=== PATIENT | female | born 1955 | race Caucasian/White ===

== ENCOUNTER 2024-10-18 11:35 | Outpatient (CLI) | payer MEDICARE, BC, SELFPAY | END 2024-10-18 11:36 | disposition home or self-care (01) | LOC: NFLDREF 10-23 18:47 | PROVIDERS: Visit Provider Physician Assistant Medical | DX: R39.9 Unspecified symptoms and signs involving the genitourinary system (principal); N39.0 Urinary tract infection, site not specified | CPT/HCPCS: 87086 ==

== ENCOUNTER 2024-11-01 08:55 | Outpatient (CLI) | payer MEDICARE, BC, SELFPAY | END 2024-11-01 08:56 | disposition home or self-care (01) | LOC: NFLDREF 11-02 11:04 | PROVIDERS: Visit Provider Nurse Practitioner Family | DX: N39.0 Urinary tract infection, site not specified (principal); B96.89 Other specified bacterial agents as the cause of diseases classified elsewhere | CPT/HCPCS: 87086 ==